=== PATIENT | female | born 1990 ===

== ENCOUNTER 2016-06-01 22:58 | Inpatient (IN) | payer OTHER ==
[~2016-06-01] VITALS: Ht 167.6 cm; Wt 108.9 kg
[2016-06-02 02:35] VITALS: BP 133/78
[2016-06-02 05:38] LABS: ABSOLUTE BASOPHIL COUNT 0 /CUMM (0.0-0.2); ABSOLUTE EOSINOPHIL COUNT 0 /CUMM (0.0-0.7); ABSOLUTE GRANULOCYTE CT 8.6 /CUMM (1.4-6.5); ABSOLUTE LYMPH COUNT 1.3 /CUMM (1.2-3.4); ABSOLUTE MONOCYTE COUNT 0.5 /CUMM (0.10-0.60); BASOPHIL % 0.3 % (0.0-2.0); EOSINOPHIL % 0.4 % (0-5); GRANULOCYTE % 82.1 % (42.2-75.2); HEMATOCRIT 33.2 % (37-47); MEAN CORPUSCULAR HGB 25.2 PG (27.0-31.0); MEAN CORPUSCULAR VOLUME 76.3 FL (81.0-99.0); MEAN PLATELET VOLUME 10.8 FL (7.4-10.4); PLATELET COUNT 208 /CUMM (130-400); RBC DISTRIBUTION WIDTH 14.9 % (11.5-14.5); RED BLOOD CELL CT 4.36 /CUMM (4.20-5.40); WHITE BLOOD CELL COUNT 10.5 /CUMM (4.8-10.8)
--- NOTE | 2016-06-02 12:53 | Operative Report ---
Operative/Inv Procedure Report Surgery Date: 06/02/16 Name of Procedure: Primary low flap transverse section via Pfannenstiel skin incision Pre-Operative Diagnosis: Term patient choice section gestational diabetes poorly controlled macrosomic infant Post-Operative Diagnosis: Same Estimated Blood Loss: 500 Surgeon/Radiation Monitor: Mine Mahmood and Iqra Jacinto DO Anesthesia: block Operative/Procedure Note Note: Procedure note patient was taken to the operating room position Procedure patient was in dorsal lithotomy position the vagina from dorsal fashion. Placed at this point the patient was returned spinal position on skin testing was performed and found to be adequate for surgery at this point the abdomen was prepped and draped sterile fashion on the skin test was performed again and found to be adequate for surgery to 3 minutes SINCE [place] midline skin was cut using a knife was carried down to rectus last was circumscribed it was cut in curvilinear fashion direction using curved Mayos and blunt dissection the peritoneal cavity was entered high into the abdomen globally valve was placed lower incision the visceral peritoneum over the uterus and cervix anteriorly the bladder blade was replaced in the lower uterine segment using nicked clear fluid was noted as over the abdominal wall on removed from the field cord was doubly clamped and cut and infant was handed to pediatricians waiting delivery and resuscitation placenta was manually noted to be intact likely with electrolytes insurance removed her membranes was also running locking suture was imbricated interrupted [id number] suture hemostasis hemostasis was apparent the abdomen was irrigated. Once saline to clear peritoneum was reapproximated using 2-0 Vicryl reapproximated to continue sutures #1 skin was reapproximated using chiqui with the Bovie for emergent subcutaneous tissue sterile dressing was applied and indicates urine was clear the counts were correct
--- NOTE | 2016-06-03 08:59 | PN- Post Delivery/GYN ---
Subjective Subjective: no flatus Review of Systems: no flatus Objective Last 24 Hrs of Vital Signs/I&O vss Physical Exam: drs dry ext nt Assessment/Plan Assessment/Plan s/p c/ds pod1 stable d/c murdock increase activity advance diet
[2016-06-03 09:07] LABS: ABSOLUTE BASOPHIL COUNT 0 /CUMM (0.0-0.2); ABSOLUTE EOSINOPHIL COUNT 0 /CUMM (0.0-0.7); ABSOLUTE LYMPH COUNT 1.2 /CUMM (1.2-3.4); ABSOLUTE MONOCYTE COUNT 0.5 /CUMM (0.10-0.60); BASOPHIL % 0.3 % (0.0-2.0)
[2016-06-03 09:12] LABS: ABSOLUTE GRANULOCYTE CT 9.1 /CUMM (1.4-6.5); EOSINOPHIL % 0.2 % (0-5); MEAN CORPUSCULAR HGB 25.6 PG (27.0-31.0); MEAN CORPUSCULAR HGB CONC 33.9 G/DL (33.0-37.0); MEAN CORPUSCULAR VOLUME 75.7 FL (81.0-99.0); MEAN PLATELET VOLUME 10.4 FL (7.4-10.4); PLATELET COUNT 199 /CUMM (130-400); RBC DISTRIBUTION WIDTH 15.4 % (11.5-14.5); RED BLOOD CELL CT 3.61 /CUMM (4.20-5.40); WHITE BLOOD CELL COUNT 10.9 /CUMM (4.8-10.8)
[2016-06-03 09:13] LABS: HEMATOCRIT 27.4 % (37-47)
[2016-06-03 09:25] LABS: GRANULOCYTE % 83.4 % (42.2-75.2)
[2016-06-05] MEDS ORDERED: DOCUSATE SODIU100 M3 PO (10:04)
[2016-06-05] MEDS ORDERED: PERCOCET 5-3251 EACH PO (10:04)
[2016-06-05] MEDS ORDERED: IBUPROFEN800 M1 PO (10:04)
--- NOTE | 2016-06-05 10:05 | PN- Post Delivery/GYN ---
Subjective Subjective: NO C/O Review of Systems: NEG Objective Last 24 Hrs of Vital Signs/I&O INCISION C/D/I Assessment/Plan Assessment/Plan S/P C/S POD3 STABLE DISCHARGE
--- NOTE | 2016-07-25 12:48 | Surgical Discharge Summary ---
Visit Information Visit Dates Admission Date: 06/02/16 Discharge Date: 06/05/16 History of Present Illness Chief Complaint: labor Medical History Isolation History: Standard Surgical History Pertinent Surgical History: Psychosocial History What is Your Primary Language? Georgian Review of Systems: labor Hospital Course Course Attending Physician: FREDRICK SANDERS MD Primary Care Physician: FREDRICK SANDERS MD Hospital Course: Admitted in active labor; previous c section; requested repeat c section. repeat c section performed without complication. Post-op course usual without complication. Discharged home. Allergies: Coded Allergies: No Known Allergies (06/02/16) Disposition Summary Disposition Principal Diagnosis: labor Additional Diagnosis: previous c section Discharge Disposition: home or self care Discharge Instructions General Discharge Information Code Status: Full Code Patient's Diet: regular Patient's Activity: limited activity Follow-Up Instructions/Appts: 1 week Medications at Discharge Discharge Medications: Start taking the following new medications: Ibuprofen (Ibuprofen) 800 MG TABLET 800 Milligram ORAL EVERY SIX HOURS NEEDED as needed for UTERINE CRAMPING Qty = 36 No Refills Comments: Last Taken:06/05/16 Time:1040 Oxycodone HCl/Acetaminophen (Percocet 5-325 MG Tablet) 5 MG-325 MG TABLET 1 Tablet ORAL EVERY 4 HOURS NEEDED as needed for PAIN SCALE 4-6 (MODERATE ) Qty = 24 No Refills Comments: Last Taken:06/05/16 Time:1040 Docusate Sodium (Docusate Sodium) 100 MG CAPSULE 100 Milligram ORAL AT BEDTIME as needed for STOOL SOFTENER Qty = 60 No Refills
--- NOTE | 2016-07-27 10:44 | Surgical Discharge Summary ---
Visit Information Visit Dates Admission Date: 06/02/16 Discharge Date: 06/05/16 History of Present Illness Chief Complaint: Previous Medical History Isolation History: Standard Surgical History Pertinent Surgical History: Psychosocial History What is Your Primary Language? Belarusian Review of Systems: Negative Hospital Course Course Attending Physician: FREDRICK SANDERS MD Primary Care Physician: FREDRICK SANDERS MD Hospital Course: The patient was admitted in labor and chose to have a repeat section. She underwent and was sent to recovery in good condition. On postoperative day #1 her Panda was discontinued her diet was advance her activity was increased. Her vital signs were stable and she was afebrile and her H&H were stable as well. On postoperative day #2 the patient continued to do well and was tolerating regular diet voiding and ambulating. On postoperative day #3 the patient was discharged home. Allergies: Coded Allergies: No Known Allergies (06/02/16) Disposition Summary Disposition Principal Diagnosis: Previous Additional Diagnosis: Active labor Discharge Disposition: home or self care Discharge Instructions General Discharge Information Code Status: Full Code Patient's Diet: Regular Patient's Activity: Pelvic rest with weekly restrictions Follow-Up Instructions/Appts: 1 week Medications at Discharge Discharge Medications: Start taking the following new medications: Ibuprofen (Ibuprofen) 800 MG TABLET 800 Milligram ORAL EVERY SIX HOURS NEEDED as needed for UTERINE CRAMPING Qty = 36 No Refills Comments: Last Taken:06/05/16 Time:1040 Oxycodone HCl/Acetaminophen (Percocet 5-325 MG Tablet) 5 MG-325 MG TABLET 1 Tablet ORAL EVERY 4 HOURS NEEDED as needed for PAIN SCALE 4-6 (MODERATE ) Qty = 24 No Refills Comments: Last Taken:06/05/16 Time:1040 Docusate Sodium (Docusate Sodium) 100 MG CAPSULE 100 Milligram ORAL AT BEDTIME as needed for STOOL SOFTENER Qty = 60 No Refills
== END 2016-06-05 12:10 | DRG 540 ==
LOC: CBCO 22:58 → GNO 06-02 00:45
PROVIDERS: Specialist; ADMIT Obstetrics & Gynecology
PROC: 10D00Z1 Extraction of Products of Conception, Low, Open Approach (ICD-10-PCS; principal; 2016-06-02)
DX: O24.420 Gestational diabetes mellitus in childbirth, diet controlled (principal); Z3A.39 39 weeks gestation of pregnancy; Z37.0 Single live birth
CPT/HCPCS: GNOS; 36415; 81001; 84112; 87086; 88307; 96360; 96361; 96372; G0378; G0463; J0690; J1650; J1885; J2210; J2270; J7042; J7120